=== PATIENT | male | born 1950 | race Caucasian/White ===

== ENCOUNTER 2018-09-23 18:45 | Emergency (ER) | payer OTHER ==
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
[2018-09-23 20:34] VITALS: BP 130/82
== END 2018-09-23 20:34 | disposition home or self-care (01) ==
DX: S16.1XXA Strain of muscle, fascia and tendon at neck level, initial encounter (principal); S09.90XA Unspecified injury of head, initial encounter; V49.40XA Driver injured in collision with unspecified motor vehicles in traffic accident, initial encounter; Y92.410 Unspecified street and highway as the place of occurrence of the external cause; Y93.9 Activity, unspecified; Y99.9 Unspecified external cause status

== ENCOUNTER 2018-10-21 07:35 | Observation (INO) | payer OTHER ==
[2018-10-21] MEDS ORDERED: ACETAMINOPHEN 325 MG TAB PO PRN (07:41)
[2018-10-21] MEDS ORDERED: FAMOTIDINE 20 MG TAB PO ONE (07:41)
[2018-10-21] MEDS ORDERED: DIAZEPAM 5 MG TAB PO ONE (07:41)
[2018-10-21] MEDS ORDERED: diphenhydrAMINE 25 MG CAP PO ONE (07:41)
[2018-10-21] MEDS ORDERED: NS 1,000 ML IV SCH (07:41)
[2018-10-21] MEDS ORDERED: TEMAZEPAM 15 MG CAP PO PRN ×2 (07:41→10:09)
[2018-10-21] MEDS ORDERED: ASPIRIN EC 325 MG TAB PO ONE (07:41)
[2018-10-21] MEDS ORDERED: LIDOCAINE 1% 300 MG/30 ML SDV ONE (07:54)
[2018-10-21] MEDS ORDERED: MIDAZOLAM 2 MG/2 ML VIAL ONE (07:55)
[2018-10-21] MEDS ORDERED: fentaNYL 100 MCG/2 ML INJ ONE (07:55)
[2018-10-21] MEDS ORDERED: CLOPIDOGREL BISULFATE 75 MG TAB ONE (07:56)
[2018-10-21] MEDS ORDERED: IOHEXOL 350mgI/ML (OMNIPAQUE) 150 ML BTL IV ONE ×2 (07:57→09:53)
--- NOTE | 2018-10-21 08:10 | PDPROPOC ---
Sedation Plan of Care Sedation Plan of Care: mental status noted, patient educated of risks, benefits , alternatives, patient can tolerate sedation ASA Classification: ASA 2 Planned drugs: fentanyl, midazolam Mallampati Score: Class 2 Mallampati Reference Image: Patient passed 3-3-2 rule?: Yes
--- NOTE | 2018-10-21 08:11 | PDHPUP ---
History & Physical Update H&P update statement: This history and physical update is based on an assessment of the patient which was completed after admission or registration (within 24 hours), but prior to the surgery/procedure. H&P update: H&P reviewed & patient examined, no change in patient's condition since H&P completed
[2018-10-21 08:25] LABS: PLATELET COUNT 177 10^3/uL (150-400)
[2018-10-21 08:57] LABS: INR 1.04 (0.83-1.16); PROTIME(PATIENT) 13.8 SEC (12.0-15.0)
[2018-10-21] MEDS ORDERED: CLOPIDOGREL BISULFATE 75 MG TAB PO SCH (09:00)
[2018-10-21] MEDS ORDERED: BIVALIRUDIN 250 MG/5 ML VIAL IV ONE (09:13)
[2018-10-21] MEDS ORDERED: EPINEPHrine 1 MG/10 ML SYR IVP ONE (09:18)
[2018-10-21] MEDS ORDERED: ATROPINE SULFATE 1 MG/10 ML SYR ONE (09:18)
[2018-10-21] MEDS ORDERED: ATROPINE SULFATE 1 MG/10 ML SYR IVP PRN (10:09)
[2018-10-21] MEDS ORDERED: HYDROCODONE/APAP 5/325 TAB PO PRN (10:09)
[2018-10-21] MEDS ORDERED: ONDANSETRON 4 MG/2 ML VIAL IVP PRN (10:09)
[2018-10-21] MEDS ORDERED: LORazepam 2 MG/ML INJ IVP PRN (10:09)
[2018-10-21] MEDS ORDERED: NITROGLYCERIN 0.4 MG BTL SL PRN (10:09)
[2018-10-21] MEDS ORDERED: OXYCODONE/APAP 5/325 TAB PO PRN (10:09)
--- NOTE | 2018-10-21 11:20 | CPIP ---
[f rep st] INVASIVE CARDIAC PROCEDURE DATE OF PROCEDURE: 10/21/2018 INDICATION FOR PROCEDURE: Positive stress test, shortness of breath. PROCEDURE: 1. Nonselective right groin sheathogram. 2. 7-Indian sheath the right common femoral vein. 3. Right heart catheterization with Columbia-Muna catheter. 4. Bilateral coronary angiography. 5. Left heart catheterization. 6. Left ventriculogram. 7. Percutaneous coronary intervention of mid right coronary artery utilizing Synergy 3.0 x 20 mm titi nt. 8. Percutaneous coronary intervention of ostial diagonal artery with Synergy 3.0 x 12 drug-eluting s tent. HISTORY: Briefly, this is a 68-year-old male with history of coronary disease. Patient has a known LAD [employer], with stents of the right coronary artery with intact left circumflex system. The patient salguero d worsening shortness of breath as an outpatient with reduced EF, as well as a positive stress test. The patient was consented for right and left heart catheterization given these findings. DESCRIPTION OF PROCEDURE: After informed consent, the patient was brought to [facility] where the right gus in was prepped and draped in sterile fashion. Using lidocaine, a short 6-Indian sheath in the right common femoral artery verified angiographically. Through this, 7-Indian sheath in the right common fe moral vein. Columbia-Muna catheter was advanced. Wedge pressure mean 8, A-wave of 10, V-wave of 9, PA p ressure systolic diastolic 14, mean of 17. RV pressure systolic 29, diastolic 4, end of 8. RA press ure mean of 6, A-wave 8, V-wave of 7. Cardiac output was measured to be 5.6 with index of 2.5. AO s at was 92%. PA sat was 72%. Columbia-Muna catheter was removed. A JL4 catheter was then advanced to the left coronary artery, which normal left main. There was a ta keoff of a high marginal 1, which was healthy. There was a marginal 2 artery, which was healthy, and distal left circumflex terminates in a marginal 3 margin 4 arteries, which were healthy. The LAD wa s 100% occluded after the takeoff of a large diagonal artery. The diagonal artery had what appeared to be a 70% to 80% ostial lesion. There was some minor hbjk-ce-heki collaterals, but no real re-yesi ateralization of the LAD from the left coronary system. After the images were obtained, the JL4 cath eter was removed. A JR4 catheter was advanced to the right coronary artery. Images of the right cor onary artery showed widely patent right coronary ostium and prox stents; however, after the takeoff o f a large marginal artery. There appeared to be a shelf of calcium edge/possible edge dissection of the vessel. Of note, the RCA proper was feeding robust collaterals to the LAD. The LAD, however, th ough distally was widely patent, had a lesion in its midportion approximately 70% to 80%. After these images were obtained, the JR4 catheter was removed. A pigtail catheter was advanced to l eft ventricle. LVEDP is 10 mmHg. Left ventriculogram showed EF of 45% with mild global hypokinesis. There was no pull-back gradient between the LV and aorta. INTERVENTION REPORT: At this time, we decided proceed with percutaneous intervention. The case had been discussed with Dr. Lyons from CT surgery who agreed with proceeding with PCI. At this time, the patient was started on Angiomax bolus and drip. A hockey-stick guide with side holes was then advan pam to the right coronary artery. Choice PT wire was placed down the main body. PTCA of the main karen dy of the RCA commenced with a 3.0 x 12 mm balloon at 10 atmospheres. After this was performed, we t hen proceeded with stenting the vessel with a 3.0 x 20 Synergy stent. This was deployed successfully at 14 atmospheres. After deployment, angiographic images were obtained, which showed excellent viera ncy of the stented regions with no evidence of dissection or perforation. The wire was pulled back. Guide catheter was pulled back. An EBU 3.5 guide catheter was advanced to the left circumflex artery. A Choice PT wire was placed do wn the diagonal artery. Predilatation commenced with 3.0 x 12 balloon across the ostial diagonal art sera at 10 atmospheres. There was definitely a waist noted with the dilatation of this area, though i t did yield significantly. At this time, the balloon was removed. We decided to proceed with stenti ng of this vessel with a 3.0 x 12 Synergy stent. This was deployed successfully at 16 atmospheres. Post deployment, there was definitely a waist noticed in the midportion of the stent. We decided to proceed with post-dilation with a noncompliant 3 0 x 8 balloon. This was inflated with multiple sequ ential placements from 14 to 20 atmospheres with moderate reduction of the waist that was noted; higgins mattie, full resolution of this waist could not be achieved reducing the stenosis from 70% to 80% down t o approximately 20% in the mid stent region. The balloon was removed, and we decided rather than ris bon any further aggressive maneuvers i.e. higher inflation with a noncompliant balloon or risking a perforation that we would remove the balloon and remove the wire at this point. Final images did see w excellent patency of the stented area with that midportion waist in the stent. The EBU guide rosana ter was removed over a 0.035 wire. Right groin was sutured in place. Patient tolerated the procedur e well no complications. IMPRESSION: 1. Successful percutaneous coronary intervention of high-grade mid right coronary artery lesion, as well as high-grade ostial diagonal artery with drug-eluting stents. 2. Patent left circumflex artery. 3. Normal right heart pressures. 4. Normal cardiac output. 5. Mildly reduced ejection fraction of 45% with global hypokinesis. PLAN: The patient be admitted overnight. Will be started on aspirin and Plavix. Will be discharged within 24 hours. /[id number]/MODL
--- NOTE | 2018-10-21 15:51 | CPEKG ---
Test Reason : OPEN Blood Pressure : / mmHG Vent. Rate : 049 BPM Atrial Rate : 050 BPM P-R Int : 203 ms QRS Dur : 100 ms QT Int : 417 ms P-R-T Axes : 047 -45 075 degrees QTc Int : 377 ms Sinus bradycardia Abnormal inferior Q waves Anterior infarct, old Confirmed by Catrachito Maldonado ([id number]) on 10/21/2018 3:50:45 PM Referred By: Carrillo Crouch Confirmed By:Catrachito Maldonado
--- NOTE | 2018-10-21 15:54 | CPEKG ---
Test Reason : OPEN Blood Pressure : / mmHG Vent. Rate : 062 BPM Atrial Rate : 060 BPM P-R Int : 189 ms QRS Dur : 103 ms QT Int : 404 ms P-R-T Axes : 032 -57 054 degrees QTc Int : 411 ms Sinus rhythm Consider inferior infarct Anterolateral infarct, old Confirmed by Catrachito Maldonado ([id number]) on 10/21/2018 3:53:45 PM Referred By: Carrillo Crouch Confirmed By:Catrachito Maldonado
[2018-10-21] MEDS ORDERED: CLOPIDOGREL BISULFATE 75 MG TAB PO ONE (16:00)
[2018-10-21] MEDS: GEMFIBROZIL 600 MG TAB PO SCH (18:19)
[2018-10-21] MEDS: CARVEDILOL 6.25 MG TAB PO SCH (18:19)
[2018-10-21] MEDS ORDERED: TAMSULOSIN HCL 0.4 MG CAP PO SCH (21:00)
[2018-10-21] MEDS ORDERED: ATORVASTATIN CALCIUM 20 MG TAB PO SCH (21:00)
[2018-10-21] MEDS ORDERED: ASPIRIN 81 MG CHEWABLE TAB PO SCH (21:00)
[2018-10-21] MEDS: OMEGA-3 FATTY ACIDS 1,000 MG CAP PO SCH (21:05)
[2018-10-22 04:54] LABS: PLATELET COUNT 157 10^3/uL (150-400)
--- NOTE | 2018-10-22 07:38 | PDCARPN ---
Cardiology Progress Note Chief Complaint: SOB Assessment/Plan: Assessment: SOB s/p PCI to RCA and D1 Plan: 10/22/18 07:36 doing well d/c home plavix/ASA f/u next week Subjective: doing well Reviewed/Discussed With: multidisciplinary team Time Spent with Patient: greater than 25 minutes Time Spent with Patient: Greater than 25 minutes spent on this patients care, greater than 50% of time spent counseling, educating, and coordinating care regarding the above mentioned plan. Objective: Vital Signs (8 Hrs) Temp Pulse Resp BP Pulse Ox 10/22/18 03:47 36.6 C 64 16 105/63 94 10/22/18 03:36 83 L Intake/Output (24 Hrs) 10/21/18 10/22/18 10/23/18 05:59 05:59 05:59 Intake Total 850 Output Total 250 Balance 600 Intake: Oral (ml) 850 Output: Urine (ml) 250 Urinal 250 Other: Weight 98.9 kg Intake Quantity Yes Sufficient Number of Voids Toilet 3 Urinal 1 Result Diagrams: 10/22/18 03:52 10/22/18 03:52 - Physical Exam Constitutional: healthy appearing Eyes: PERRL Ears, Nose, Mouth, Throat: moist mucous membranes Cardiovascular: regular rate and rhythm Peripheral Pulses: 1+: femoral (R), femoral (L) Respiratory: clear to auscultate bilat Gastrointestinal: normoactive bowel sounds Genitourinary: no suprapubic tenderness Skin: no rashes Musculoskeletal: no muscular tenderness Neurologic: AAOx3 Psychiatric: cooperative ICD10 Worksheet Patient Problems: Problems Problem Status Onset CAD (coronary artery disease) Acute - ICD10 Problem Qualifiers (1) CAD (coronary artery disease) Qualifiers: Coronary Disease-Associated Artery/Lesion type: [place] artery Associated angina: with other forms of angina
--- NOTE | 2018-10-22 07:57 | GDS ---
[f rep st] DISCHARGE SUMMARY DISCHARGE DIAGNOSIS: Coronary artery disease. HOSPITAL COURSE: Briefly, this is a 68-year-old male with history of ischemic cardiomyopathy. The p atient had outpatient stress testing, which was positive for multiple defects. Also the patient has been complaining of worsening shortness of breath. The patient underwent catheterization, which show ed high-grade edge lesion in the right coronary artery at the site of a previously placed stent 20 ye ars ago. The patient underwent PCI of the right coronary artery with excellent results. The patient also has a known occluded LAD with robust collaterals from the right coronary artery to the LAD. Th e patient had a moderate-sized diagonal artery with a high-grade 90% ostial lesion. This was interve dom as well. The PCI of the diagonal artery, however, showed that after stent being placed. There w as an under expansion stent. We utilized a noncompliant balloon at extremely high atmospheres, and t his would not yield the lesion in the diagonal artery. Post deployment of the stent, however, there was still excellent flow into the vessel. At that time, no further intervention was warranted given the patient's arteries that could be opened were opened. The patient will be discharged home this mo rning with his home medications including a baby aspirin and Plavix. He will be following up in the office in 1 week's time. /[id number]/MODL
[2018-10-22 07:59] VITALS: BP 110/72
[2018-10-22] MEDS: CARVEDILOL 6.25 MG TAB PO SCH (08:34)
[2018-10-22] MEDS: OMEGA-3 FATTY ACIDS 1,000 MG CAP PO SCH (08:34)
[2018-10-22] MEDS: GEMFIBROZIL 600 MG TAB PO SCH (08:34)
[2018-10-22] MEDS ORDERED: CYANO/VITAMIN B12 1000 MCG TAB PO SCH (09:00)
[2018-10-22] MEDS ORDERED: PANTOPRAZOLE SODIUM 40 MG TAB PO SCH (09:00)
[2018-10-22] MEDS ORDERED: TADALAFIL 5 MG PO SCH (09:00)
[2018-10-22] MEDS ORDERED: CLOPIDOGREL BISULFATE 75 MG TAB PO SCH (09:00)
[2018-10-22] MEDS ORDERED: Herbals/Supplements -Info Only PO SCH (09:00)
[2018-10-22] MEDS ORDERED: SPIRONOLACTONE 25 MG TAB PO SCH (09:00)
[2018-10-22] MEDS ORDERED: MULTIVITAMINS 1 EACH TAB PO SCH (09:00)
[2018-10-22] MEDS ORDERED: FINASTERIDE 5 MG TAB PO SCH (09:00)
[2018-10-22] MEDS ORDERED: [UNRECOGNIZED DRUG - OTHER] TP SCH (09:00)
[2018-10-22] MEDS ORDERED: TESTOSTERONE TP SCH (09:00)
[2018-10-22] MEDS ORDERED: LISINOPRIL 10 MG TAB PO SCH (09:00)
--- NOTE | 2018-10-22 12:35 | ASDISCHSUM ---
Discharge Information Plan Status:Home with No Needs Medically Cleared to Leave:10/21/2018 Discharge Date:10/22/2018 12:10 PM CM D/C Disposition:Home, Routine, Self-Care ADT D/C Disposition:Home, Routine, Self-Care Projected Discharge Date:10/22/2018 12:10 PM Transportation at D/C: Discharge Delay Reason: Follow-Up Date:10/22/2018 12:10 PM Discharge Slot: Final Diagnosis: Placement Information Patient Contact Information Contact Name:NAT Relationship:Friend Address: Work Phone: City: [facility] Phone: State/[place] Code: Email: Financial Information Financial Class:Medicare Advantage Plans Primary Plan Desc:[employer] MEDICARE ADV Primary Plan Number:[id number] Secondary Plan Desc: Secondary Plan Number: Assessment Information LACE LACE Length of stay for Answers: 1 day current admission Acuity / Level of Answers: No Care: Did the patient have an inpatient admission? Comorbidities - select Answers: Coronary Artery Disease all that apply Diabetes (uncontrolled or controlled) Other Notes: HTN # of Emergency department Answers: 1-2 visits in the last 6 months Score: 6 Date Signed: 10/22/2018 12:34 PM Electronically Signed By:Violeta Shahid RN Intervention Information
[2018-10-23] MEDS ORDERED: metFORMIN SR 500 MG TAB PO SCH (18:00)
== END 2018-10-22 12:10 | disposition home or self-care (01) ==
LOC: FCATH 07:35 → F2W 10:10
PROVIDERS: ADMIT Internal Medicine Cardiovascular Disease; ATTEND Internal Medicine Cardiovascular Disease
DX: I25.10 Atherosclerotic heart disease of native coronary artery without angina pectoris (principal); I50.32 Chronic diastolic (congestive) heart failure; E78.5 Hyperlipidemia, unspecified
CPT/HCPCS: 93005; 93460; C1725; C1769; C1874; C1887; C9600; G0378; J0583; J1644; J2250; J3010; Q9967; C9601; J0461